=== PATIENT | female | born 1945 | race Caucasian/White ===

== ENCOUNTER → 2019-11-03 10:00 | Outpatient (BNVA) | payer MEDICARE, OTHER, SELFPAY | PROVIDERS: Family Provider Internal Medicine; PCP Internal Medicine; Visit Provider Obstetrics & Gynecology | DX: R32 Unspecified urinary incontinence (principal) | CPT/HCPCS: 80053 ==

== ENCOUNTER 2019-12-25 07:44 | Outpatient (CLI) | payer MEDICARE, OTHER, SELFPAY ==
--- NOTE | 2019-12-25 07:50 | MM_ITS ---
WS: [id number] BILATERAL SCREENING DIGITAL MAMMOGRAM WITH CAD HISTORY: SCREENING COMPARISON: 08/22/2018 and 08/15/2017 Bilateral CC and MLO views submitted. Computer aided detection analyzed. Breast composition: The breasts are heterogeneously dense, which may obscure small masses. No suspici ous masses, microcalcifications or architectural distortion. Several benign appearing calcifications and stable calcifications within each breast. MM/[place] [id number] IMPRESSION: BI-RADS: 2-Benign FOLLOW UP: 1 Year Follow-up
== END 2019-12-25 07:45 | disposition home or self-care (01) ==
LOC: RADSHAW 07:48
PROVIDERS: Family Provider Internal Medicine; PCP Internal Medicine; Visit Provider Internal Medicine
DX: Z12.31 Encounter for screening mammogram for malignant neoplasm of breast (principal)
CPT/HCPCS: 77067

== ENCOUNTER → 2020-03-31 13:49 | Outpatient (BNVA) | payer MEDICARE, OTHER, SELFPAY | PROVIDERS: Family Provider Internal Medicine; PCP Internal Medicine; Visit Provider Obstetrics & Gynecology | DX: N76.3 Subacute and chronic vulvitis (principal); B37.3 Candidiasis of vulva and vagina | CPT/HCPCS: 87210 ==

== ENCOUNTER 2020-10-12 06:58 | Outpatient (CLI) | payer MEDICARE, OTHER, SELFPAY ==
--- NOTE | 2020-10-12 | USCV_ITS ---
Kamilla Katz Age: 75 Gender: F : 1945 Exam Date: 10/12/2020 07:19 Ordering Phys: Judit Stockton MD Technologist: Ruthie Frausto [place] [facility] [place]: CHF BP: 137 / 80 HR: 87 Rhythm: Sinus Technical Quality: Adequate MEASUREMENTS (Male / Female) Normal Values 2D ECHO LV Diastolic Diameter PLAX 3.6 cm 4.2 - 5.9 / 3.9 - 5.3 cm LV Systolic Diameter PLAX 2.9 cm LV Chamber Size 2.9 cm IVS Diastolic Thickness 1.0 cm 0.6 - 1.0 / 0.6 - 0.9 cm IVS Systolic Thickness 1.2 cm LVPW Diastolic Thickness 1.1 cm 0.6 - 1.0 / 0.6 - 0.9 cm LVPW Systolic Thickness 1.2 cm RV Chamber Size 2.2 cm LVOT Diameter 2.0 cm LV Ejection Fraction 2D Teich 42.9 % LV Ejection Fraction MOD 2C 69.5 % LV Ejection Fraction 2C AL 70.0 % LA Diameter 3.2 cm LA Width 2.9 cm LA Height 4.3 cm RA Width 2.0 cm RA Height 3.6 cm Aorta at Sinotubular Diameter 2.7 cm M-MODE LV Diastolic Diameter MM 4.3 cm 4.2 - 5.9 / 3.9 - 5.3 cm LV Systolic Diameter MM 2.7 cm LV Ejection Fraction MM Teich 69.2 % IVS Diastolic Thickness MM 1.3 cm 0.6 - 1.0 / 0.6 - 0.9 cm IVS Systolic Thickness MM 1.7 cm LVPW Diastolic Thickness MM 1.4 cm 0.6 - 1.0 / 0.6 - 0.9 cm LVPW Systolic Thickness MM 1.1 cm Aortic Annulus Diameter 3.0 cm LA Ao Ratio MM 1.0 MV E Point Septal Separation 0.5 cm DOPPLER AV Peak Velocity 126.0 cm/s LVOT Peak Velocity 94.0 cm/s AV Area Cont Eq vti 2.6 cm squared AV Area Cont Eq pk 2.5 cm squared MV Area PHT 12.2 cm squared Mitral E to A Ratio 0.6 MV E' Velocity 40.0 cm/s Mitral E to MV E' Ratio 8.4 Mitral E to LV E' Lateral Ratio 6.1 Mitral E to LV E' Septal Ratio 13.7 TR Peak Velocity 200.4 cm/s TR Peak Gradient 16.1 mmHg TR Mean Velocity 159.1 cm/s TR Mean Gradient 10.6 mmHg TR Velocity Time Integral 55.9 cm TV Peak E Velocity 59.0 cm/s Right Atrial Pressure 3.0 mmHg Pulmonary Artery Systolic Pressu 19.1 mmHg PV Peak Velocity 62.0 cm/s RV Acceleration Time 0.1 s RV Ejection Time 0.3 s RV AcT/ET 0.4 FINDINGS Left Ventricle Normal left ventricular size and systolic function, EF 71 %. No regional wall motion abnormalities. Right Ventricle The right ventricle is normal in size and function. Right Atrium The right atrium is normal in size. Left Atrium The left atrium is normal in size. Mitral Valve No gross abnormalities noted Aortic Valve No gross abnormalities noted . Tricuspid Valve Trace tricuspid valve regurgitation. Pulmonic Valve Pulmonic valve not well visualized. Pericardium Normal pericardium without effusion. Aorta Normal ascending aorta dimension. CONCLUSIONS Normal left ventricular size and systolic function, EF 71 %. No regional wall motion abnormalities. Normal cardiac chamber sizes. Trace tricuspid valve regurgitation. Estimated pulmonary artery peak systolic pressure of 19 mmHg No significant pericardial effusion Dr Henry Orosco MD FAC (Electronically Signed) Final Date: 13 Oct 2020 00:39 S
== END 2020-10-12 06:59 | disposition home or self-care (01) ==
LOC: US 06:58
PROVIDERS: PCP Internal Medicine; Visit Provider Internal Medicine
DX: R60.9 Edema, unspecified (principal); I50.9 Heart failure, unspecified
CPT/HCPCS: 93306

== ENCOUNTER 2021-05-11 07:53 | Outpatient (CLI) | payer MEDICARE, OTHER, SELFPAY ==
--- NOTE | 2021-05-11 07:56 | MM_ITS ---
WS: [id number] BILATERAL DIGITAL SCREENING MAMMOGRAPHY WITH CAD CLINICAL INFORMATION: SCREENING HISTORY: Screening mammogram. No current complaints. COMPARISON: December 25, 2019 TECHNIQUE: Bilateral CC and MLO views. FINDINGS: Scattered fibroglandular densities bilaterally. Stable punctate and lucent centered calcifications. V ascular calcification. No suspicious focal mass, asymmetry, calcifications, or architectural distorti on. No evidence of malignancy. MM/[id number] IMPRESSION: BI-RADS: 2-Benign FOLLOW UP: 1 Year Follow-up Recommend return to annual screening mammography.
== END 2021-05-11 07:54 | disposition home or self-care (01) ==
LOC: RADSHAW 07:55
PROVIDERS: PCP Internal Medicine; Visit Provider Internal Medicine
DX: Z12.31 Encounter for screening mammogram for malignant neoplasm of breast (principal)
CPT/HCPCS: 77067

== ENCOUNTER → 2021-05-13 09:20 | Outpatient (BNVA) | payer MEDICARE, OTHER, SELFPAY | PROVIDERS: PCP Internal Medicine; Visit Provider Obstetrics & Gynecology | DX: N81.10 Cystocele, unspecified (principal); E11.9 Type 2 diabetes mellitus without complications | CPT/HCPCS: 81000; 83036 ==

== ENCOUNTER → 2021-06-24 08:41 | Outpatient (BNVA) | payer MEDICARE, OTHER, SELFPAY | PROVIDERS: PCP Internal Medicine; Visit Provider Obstetrics & Gynecology | DX: Z01.818 Encounter for other preprocedural examination (principal) | CPT/HCPCS: 87635 ==

== ENCOUNTER 2021-06-29 14:15 | Observation (INO) | payer MEDICARE, OTHER, SELFPAY ==
--- NOTE | 2021-06-28 09:45 | ECG_ITS ---
[facility] Test Date: 2021-06-28 Pat Name: Kamilla Katz Department: Room: Gender: Female Shelf Filler: : 1945 Requested By: Tonio Dias Order Number: [id number] Brent MD: Lacey Hensley M.D. Measurements Intervals [place] Rate: 81 P: 50 [place]: 200 QRS: -15 QRSD: 97 T: 19 QT: 403 QTc: 468 Interpretive Statements SINUS RHYTHM POSSIBLE LEFT ATRIAL ENLARGEMENT [-0.1mV P-WAVE IN V1/V2] INFERIOR MYOCARDIAL INFARCTION , OF INDETERMINATE AGE [40+ ms Q WAVE AND/OR ST/T ABNORMALITY IN II/aVF] ANTEROLATERAL MYOCARDIAL INFARCTION , OF INDETERMINATE AGE [40+ ms Q WAVE IN I/aVL/V3-V6] No previous ECG available for comparison Electronically Signed On 06-28-2021 17:12:51 MANAGEMENT ENGINEER by Lacey Hensley M.D. [id number]
[2021-06-28 10:04] VITALS: BMI 25.4
[2021-06-28 11:34] LABS: Basophils # 0.1 10^3/uL (0.0-0.1); Basophils % 0.9 %; Eosinophils # 0.5 10^3/uL (0.0-0.8); Hematocrit 51.1 % (37.0-47.0); Hemoglobin 16.3 g/dL (11.5-15.3); Lymphocytes # 1.5 10^3/uL (0.8-4.8); Lymphocytes % 16.9 %; Mean Corpuscular HGB Conc 31.9 g/dL (30.0-36.0); Mean Corpuscular Hemoglobin 29.9 pg (28.0-34.0); Mean Corpuscular Volume 93.8 fl (81-99); Mean Platelet Volume 11.3 fL (7.4-10.4); Monocytes # 0.5 10^3/uL (0.2-0.9); Monocytes % 5.8 %; Neutrophils # 6.43 10^3/uL (1.8-7.7); Nucleated Red Blood Cells % 0 %; Platelet Count 283 10^3/cmm (130-400); Red Blood Count 5.45 10^6/uL (4.1-5.3); Red Cell Distribution Width 13.3 % (12.1-15.1); White Blood Count 9.1 10^3/uL (4.0-10.0)
[2021-06-28 11:42] LABS: Add Urine Microscopic? YES; Bilirubin Urine Neg (Negative); Blood Urine Neg (Negative); Glucose Urine UA 4+ (Normal); Ketones Urine Negative (Negative); Leukocyte Esterase Urine Trace (Negative); Nitrate Urine Negative (Negative); Protein Urine Neg (Negative); Specific Gravity, Urine 1.015 (1.005-1.030); Urine Appearance Hazy (CLEAR); Urine Color Yellow (Yellow); Urobilinogen Urine Neg (Negative); pH Urine 5 (5-7)
[2021-06-28 11:46] LABS: RBC Urine 0-4 /hpf (0-2)
[2021-06-28 11:48] LABS: Add Urine Culture? Yes; Bacteria Urine TRACE /hpf; WBC Urine >100 /hpf (0-5)
[2021-06-28 12:00] LABS: Alanine Aminotransferase 45 U/L (0-33); Albumin Level 4.9 g/dL (3.5-5.2); Alkaline Phosphatase 78 IU/L (35-105); Anion Gap 23.4 (5-19); Aspartate Amino Transferase 24 U/L (0-32); Blood Urea Nitrogen 19 mg/dL (8-23); Calcium 10.9 mg/dL (8.5-10.5); Carbon Dioxide 24 mmol/L (22-29); Chloride 92 mmol/L (98-107); Globulin 2.6 g/dL (1.3-4.6); Glucose 234 mg/dL (65-115); Osmolality Calculated 292 mOsm/kg (285-295); Potassium 3.4 mmol/L (3.5-5.1); Sodium 136 mmol/L (136-145); Total Bilirubin 0.6 mg/dL (0.15-1.2); Total Protein 7.5 g/dL (6.6-8.7)
--- NOTE | 2021-06-28 12:01 | ANES.PREANE2 ---
Pre-Anesthetic Assessment Height/Weight: Height 1.57 m Weight 63.049 kg Preop Diagnosis: Cystocele stage III Operation Date: 06/29/21 10:00 Proposed Procedures p Anterior Repair [id number]/n81.10(Not Applicable) - Nish Duncan MD s Sling(Not Applicable) - Nish Duncan MD Familial anesthetic complications: None Was Beta Sophy taken within 24 hours: Yes Was Clonidine taken within 24 hours: N/A Social No alcohol and No tobacco Exam alert, oriented x 3, clear to auscultation bilaterally and regular rate & rhythm Airway Submandibular: within normal limits and Other Cervical ROM: Other (Limited) Mallampati: Class III Dentition: chipped History/ROS No significant complaints Pulmonary Chronic Obstructive Pulmonary Disease CV/HEM Coronary Artery Disease, Hypertension and Myocardial Infarction METS > 4 Hx of coronary stenting TTE 09/2020 CONCLUSIONS ?Normal left ventricular size and systolic function, EF 71 %. ?No regional wall motion abnormalities. ?Normal cardiac chamber sizes. ?Trace tricuspid valve regurgitation. ?Estimated pulmonary artery peak systolic pressure of 19 mmHg ?No significant pericardial effusion None reported Hepatic None reported GI None reported Metabolic Diabetes Mellitus [facility] [place]/skel Osteoarthritis/DJD Neuropsych None reported Anesthetic Plan Anesthesia: Anesthesia Evaluation and General Risk of > 500 ml blood loss (7ml/kg in children): No Medications/Allergies Home Medications Medication Instructions Recorded Confirmed Last Taken Type aspirin 325 mg tablet 325 mg PO DAILY 07/22/19 06/28/21 Unknown History lorazepam 0.5 mg tablet 0.5 mg PO DAILY PRN 07/22/19 06/28/21 Unknown History metformin 1,000 mg tablet 1,000 mg PO BID 07/22/19 06/28/21 Unknown History cholecalciferol (vitamin D3) 50 1,000 unit PO DAILY tab 07/24/19 06/28/21 Unknown History mcg (2,000 unit) tablet glimepiride 1 mg tablet 2 mg PO DAILY tab 11/03/19 06/28/21 Unknown History losartan 50 mg tablet 50 mg PO BID tab 01/19/20 06/28/21 Unknown History metoprolol tartrate 25 mg tablet 75 mg PO BID tab 07/21/20 06/28/21 Unknown History liraglutide 0.6 mg/0.1 mL (18 mg/3 1.2 mg SUBCUT DAILY 01/13/21 06/28/21 Unknown History mL) subcutaneous pen injector (Victoza 2-Lorenzo) chlorthalidone 25 mg tablet 25 mg PO DAILY #30 tab 02/04/21 06/28/21 Unknown Rx azelastine 137 mcg (0.1 %) nasal 2 spray INTRANASAL BID #30 ml 03/06/21 06/28/21 Unknown Rx spray aerosol nifedipine 30 mg tablet,extended 30 mg PO DAILY #30 tab 03/07/21 06/28/21 Unknown Rx release atorvastatin 40 mg tablet 40 mg PO DAILY 06/27/21 06/28/21 Unknown History calcium carbonate 600 mg calcium 1,200 mg PO DAILY tab 06/27/21 06/28/21 Unknown History (1,500 mg) tablet (Calcium) empagliflozin 10 mg tablet 10 mg PO DAILY 06/27/21 06/28/21 Unknown History (Jardiance) eye promise PO DAILY 06/27/21 Unknown History omega 1-vrx-wfy-fish oil 1,200 mg cap PO DAILY cap 06/27/21 06/27/21 Unknown History (144 mg-216 mg) capsule (Fish Oil) Allergies Allergy/AdvReac Type Severity Reaction Status Date / Time Penicillins Allergy Unknown Unknown Verified 06/28/21 09:58 [facility] [place] Anesthesia Medical History ASHD (arteriosclerotic heart disease) COPD (chronic obstructive pulmonary disease) Diabetes Dyslipidemia HTN (hypertension) Myocardial infarction Surgical History S/P hysterectomy (~1994) ELSA with bladder tie up . Performed by Dr. Balderrama at [facility] [place]. Unsure if has ovaries S/P PTCA (percutaneous transluminal coronary angioplasty) Status post tubal ligation Family History Unknown Diabetes paternal and maternal in general Stroke aunts Heart disease paternal and maternal in general Hypertension maternal side in general Brother Diabetes Father Diabetes Cancer bone and prostate Son Diabetes Mother Diabetes Heart disease Hypertension Cancer liver Denies family history of CAD (coronary artery disease) Clotting disorder Hyperlipidemia Chronic kidney disease (CKD) Bleeding disorder Thyroid disease Social History Smoking and tobacco status: never smoked Alcohol intake: never Substance/Drug Use: never Household members: spouse Marital status: Data Anesthesia : 06/28/21 10:30 06/28/21 10:30 Short CBC 06/28/21 Range/Units 10:30 WBC 9.1 (4.0-10.0) 10^3/uL Hgb 16.3 H (11.5-15.3) g/dL Hct 51.1 H (37.0-47.0) % MCV 93.8 (81-99) fl Plt Count 283 (130-400) 10^3/cmm Neut % (Auto) 71.0 % Neut # (Auto) 6.43 (1.8-7.7) 10^3/uL Urine 06/28/21 Range/Units 10:40 Urine Color Yellow (Yellow) Urine Appearance Hazy A (CLEAR) Urine pH 5 (5-7) Ur Specific Krypton 1.015 (1.005-1.030) Urine Protein Neg (Negative) Urine Glucose (UA) 4+ H (Normal) Urine Ketones Negative (Negative) Urine Nitrate Negative (Negative) Urine Bilirubin Neg (Negative) Ur Leukocyte Esterase Trace H (Negative) Urine RBC 0-4 H (0-2) /hpf Urine WBC >100 H (0-5) /hpf Cardiac Studies: Echocardiogram Ultrasound 10/12/20
[2021-06-29] VITALS (15 sets, daily range): BP systolic 124–162; BP diastolic 58–85; PULSE 71–120; RESP 10–18; TEMP 36.3–36.9; O2SAT 94–96; BMI 25.4
--- NOTE | 2021-06-29 08:42 | W.PM.OPSUD ---
Surgery/Procedure H&P Update DATE OF PROCEDURE: June 29, 2021 DATE H&P PERFORMED: 06/27/21 H&P UPDATE INFORMATION: I have reviewed H&P completed within last 30 days and No changes to prior documentation PREOP DIAGNOSIS: Cystocele stage III PLANNED PROCEDURE: Operation Date: 06/29/21 10:00 Proposed Procedures p Anterior Repair [id number]/n81.10(Not Applicable) - Nish Duncan MD s Sling(Not Applicable) - Nish Duncan MD
--- NOTE | 2021-06-29 09:00 | P.ANESUD_ITS ---
Pre-Anesthetic Update Pre-Anesthetic Assessment: Date of Surgery/Procedure: 06/29/21 Preop Shelbie gnosis: Cystocele stage III Proposed Procedure: Operation Date: 06/29/21 10:00 Proposed Procedures p Anterior Repair [id number](Not Applicable) - Nish Duncan MD s Sling(Not Applicable) - Nish Duncan MD Any changes to Pre-Anesthetic Assessment?: No Last Intake: Intake Last Liquid Date 06/28/21 Last Liquid Time 18:00 Last Solid Date 06/28/21 Last Solid Time 18:00 Labs Last 48hrs: Short CBC 06/28/21 Range/Units 10:30 WBC 9.1 (4.0-10.0) 10^3/ uL Hgb 16.3 H (11.5-15.3) g/dL Hct 51.1 H (37.0-47.0) % MCV 93.8 (81-99) fl Plt Count 283 (130-400) 10^3/c mm Neut % (Auto) 71.0 % Neut # (Auto) 6.43 (1.8-7.7) 10^3/u L BMP 06/28/21 10:30 Sodium 136 Potassium 3.4 L Chloride 92 L Carbon Dioxide 24 BUN 19 Creatinine 0.5 Glucose 234 H Calcium 10.9 H Liver Function 06/28/21 Range/Units 10:30 Total Bilirubin 0.6 (0.15-1.2) mg/dL AST 24 (0-32) U/L ALT 45 H (0-33) U/L Alkaline Phosphata se 78 (35-105) IU/L Albumin 4.9 (3.5-5.2) g/dL Urine 06/28/21 Range/Units 10:40 Urine Color Yellow (Yellow) Urine Appearance Hazy A (CLEAR) Urine pH 5 (5-7) Ur Specific Gravit y 1.015 (1.005-1.030) Urine Protein Neg (Negative) Urine Glucose (UA) 4+ H (Normal) Urine Ketones Negative (Negative) Urine Nitrate Negative (Negative) Urine Bilirubin Neg (Negative) Ur Leukocyte Elin ase Trace H (Negative) Urine RBC 0-4 H (0-2) /hpf Urine WBC >100 H (0-5) /hpf Blood Bank 06/28/21 10:30 Blood Type B Positive Rho(D) Type Positive Antibody Screen Negative Vitals: Temperature 98.4 F 06/29/21 08:30 Temperature Source Temporal Artery S can 06/29/21 08:30 Pulse Rate 71 06/29/21 08:30 Respiratory Rate 18 06/29/21 08:30 Blood Pressure 141/84 06/29/21 08:30 Blood Pressure Lisa n 103 06/29/21 08:30 Pulse Oximetry 96 06/29/21 08:30 Oxygen Delivery Me thod 06/29/21 08:43 Exam: Pre-Anes Outpt Exam: alert, oriented x 3, clear to auscultation bilaterally and regular rate & rhythm Cardiac Studies: Echocardiogram Ultrasound 10/12/20
[2021-06-29 09:05] LABS: Glucose Point of Care 235 mg/dL (70-110)
[2021-06-29] MEDS: sodium chloride 0.9% 500 ML IV (09:11)
[2021-06-29] MEDS: vancomycin 1,000 MG in sodium chloride 0.9% 250 ML 250 MG IV (09:11)
[2021-06-29] MEDS: scopolamine 1.5 Patch 1 PATCH TRANSDERMA (09:12)
[2021-06-29] MEDS: insulin regular-human 100 units/1 mL 10 UNIT IVP (09:24)
[2021-06-29] MEDS: sodium chloride 0.9% 1,000 ML 30 ML (09:45)
[2021-06-29] MEDS: levofloxacin-dextrose 5 % 500 MG/100 ML PREMIX 100 MG IV (11:07)
[2021-06-29] MEDS: estrogens Conjugated Cream 30 gm 1 APPLIC VAGINAL (12:15)
--- NOTE | 2021-06-29 12:34 | P.OP_ITS ---
Operative Report Date of procedure: June 29, 2021 Pre-op diagnosis: Cystocele stage III Post-op diagnosis: same Procedure done: Anterior colporrhaphy augmented with allograft. Single incision sling. Cystoscopy Implants: Coloplast allograft. Coloplast Altis single incision sling. Surgeon: Nish Duncan MD Estimated blood loss: 10 Urine output: 300 Procedure: After obtaining informed consent, the patient was taken to the operating room and placed in the supine position, given general anesthesia, and prepped and draped in sterile fashion. The abdomen, vulva and vagina were prepped and draped in a sterile manner. A time out procedure was performed. The anterior vaginal mucosa beneath the midurethra was infiltrated with 0.5% Marcaine with epinephrine. A vertical midline incision was made beneath the midurethra, nearly 1.5 cm length. Careful submucosal dissection was performed bilaterally up to the interior portion of the inferior pubic ramus. The insertion of adductor longus tendon on the patient?s pubic ramus was identified as reference land liz. Palpated the notch along the internal edge of ischiopubic ramus where the adductor longus tendon and the inferior pubic ramus meet. The Altis single incision sling (SIS) was selected. Then the needle of the SIS inserted aiming at the location of this notch. One of the integrated self- fixating tips place onto the needle by sliding it over the end of the needle. The needle/sling assembly was inserted toward the location of identified re ference notch making sure that the flat of the handle is perpendicular to the desired path. The needle was tracked along the posterior surface of the ischiopubic ramus until the midline liz on the mesh is approximately at the midline position under the urethra. The needle was removed and the same was repeated on the contralateral side until the appropriate sling tension under the urethra was achieved ensuring that the mesh lays flat. The needle was removed and vaginal incision was closed in a running interlocking fashion with 2-0 Vicryl. The vaginal mucosa was then injected in the midline with normal saline. The vaginal mucosa was scored in the midline with the Bovie approximately 1 cm medial to the urethral meatus to 1 cm distal to the vaginal cuff. This vaginal mucosa was then undermined and then incised in the midline with the Metzenbaum scissors. The lateral aspects of the vaginal mucosa were then grasped with the Allis clamps and the vaginal mucosa was then dissected off the underlying fascia with the Metzenbaum scissors. Again, there was noted to be quite a bit of oozing at the incision, which was controlled with cautery. After adequate dissection was performed, bilaterally. The Coloplast allograft was modified at time of application to fit spacea, 3 x 3 cm piece . The allograft was placed in front of cystocele and was suture is placed at distal end of graft and placed towards vaginal cuff. Final suture is placed on proximal portion of the graft to complete the placement overlying the bladder. Then Interrupted vertical mattress sutures of 0 Vicryl were used to elevate the cystocele superiorly. The excessive vaginal mucosa was then trimmed with the Metzenbaum scissors and the vaginal mucosa was then reapproximated in the running interlocking fashion with 2-0 Vi cryl. Then the Arce catheter was removed and cystoscope was inserted. The bladder was filled with sterile water. Complete evaluation of the bladder mucosa was performed noting no lacerations, dimpling, tears, bleeding of the mucosa or muscular layers. Both ureteral orifices were identified. Prompt excretion of urine from both ureteral orifices was noted. Cystoscope was withdrawn. The Arce catheter was replaced. Excellent hemostasis was obtained. A vaginal pack is placed overnight as postoperative support for the vaginal tissues after graft placement and closure of vaginal incisions. Sponge, lap, needle, and instrument counts were correct times three. The patient was taken to the recovery room, awake and in stable condition.
--- NOTE | 2021-06-29 13:02 | ANE.PACU2 ---
Inpatient post-anesthesia follow up: Airway intact: Yes Vital signs: Temperature 97.7 F Pulse Rate 84 Respiratory Rate 17 Blood Pressure 153/65 Pulse Oximetry 95 Oxygen Delivery Me thod Room Air Oxygen Flow Rate Fraction of Inspir ed Oxygen Hydration adequate: Yes Nausea and vomiting: No Pain level: 1 Mental status: Baseline
[2021-06-29] MEDS: losartan 50 mg Tablet PO (18:03)
[2021-06-29] MEDS: docusate sodium 100 mg Capsule PO (18:03)
[2021-06-29] MEDS: metformin 500 mg Tablet 1000 MG PO (18:04)
[2021-06-29] MEDS: metoprolol tartrate 25 mg Tablet 75 MG PO (18:05)
[2021-06-29] MEDS: ibuprofen 800 mg tablet PO (22:29)
[2021-06-29] MEDS: LORazepam 0.5 mg Tablet PO (22:29)
[2021-06-30 04:17] VITALS: BP 146/69; PULSE 81; RESP 15; TEMP 36.6; O2SAT 95
[2021-06-30 05:49] LABS: Hematocrit 40.3 % (37.0-47.0); Hemoglobin 13.1 g/dL (11.5-15.3); Mean Corpuscular HGB Conc 32.5 g/dL (30.0-36.0); Mean Corpuscular Hemoglobin 30.2 pg (28.0-34.0); Mean Corpuscular Volume 92.9 fl (81-99); Mean Platelet Volume 10.9 fL (7.4-10.4); Platelet Count 218 10^3/cmm (130-400); Red Blood Count 4.34 10^6/uL (4.1-5.3); Red Cell Distribution Width 13.1 % (12.1-15.1); White Blood Count 8.8 10^3/uL (4.0-10.0)
[2021-06-30] MEDS: metformin 500 mg Tablet 1000 MG PO (10:07)
[2021-06-30] MEDS: docusate sodium 100 mg Capsule PO (10:07)
[2021-06-30] MEDS: aspirin 325 mg Tablet PO (10:08)
[2021-06-30] MEDS: atorvastatin 40 mg Tablet PO (10:08)
[2021-06-30] MEDS: NIFEdipine ER (24 hr) 30 mg Tablet PO (10:08)
[2021-06-30] MEDS: metoprolol tartrate 25 mg Tablet 75 MG PO (10:08)
[2021-06-30 10:09] VITALS: BP 139/64
[2021-06-30] MEDS: losartan 50 mg Tablet PO (10:09)
[2021-06-30] MEDS: chlorthalidone 25 mg Tablet PO (10:09)
[2021-06-30] MEDS: glimepiride 2 mg Tablet PO (10:09)
[2021-06-30] MEDS: cholecalciferol (vitamin D3) 1,000 unit Tablet 1000 UNIT PO (10:09)
--- NOTE | 2021-06-30 11:24 | PM.OBGYDC ---
Discharge Providers LICENSED LOAN OFFICER Date of Admission: 06/29/21 14:15 Date of Discharge: 06/30/21 Attending Provider at Admission: Nish Duncan MD Attending Provider at Discharge: Nish Duncan MD Primary Care Provider: Judit Stockton MD Reason for Visit Reason for Visit: stage 3 cystocele Hospital Course Hospital Course Mrs. Granados 75-year-old female with a history of cystocele stage III. Admitted for planned anterior colporrhaphy augmented with allograft and single incision mid urethral sling. The procedures were performed without complication. She is afebrile and hemodynamically stable. Postop PVR within normal limits. Tolerating diet well. Ambulating without difficulty. Physical Exam Narrative: EXAM NARRATIVE: GA: Alert and oriented ?3. HEENT: WNL. Heart: Regular rate and rhythm. Lungs: Clear to auscultation bilaterally. Abdomen: Bowel sounds present, nontender. ELEVATOR OPERATOR: Spotting bleeding. Extremities: No edema, no cyanosis, no calves pain. Urinary Catheter Management: Arce: Cath Placed During This Visit: yes Urinary Catheter Date of Insertion: 06/29/21 Urinary Catheter Time of Insertion: 10:59 History History History 3 Term 1 Miscarriages/Ectopic 2 0 Living Children 1 Discharge Data Studies Completed and Pending Pending at discharge Category Date Time Status ES surgery / GI images Routine Exams 06/29/21 11:49 Taken Laboratory Results WBC 8.8 10^3/uL (4.0-10.0) 06/30/21 05:30 RBC 4.34 10^6/uL (4.1-5.3) 06/30/21 05:30 Hgb 13.1 g/dL (11.5-15.3) 06/30/21 05:30 Hct 40.3 % (37.0-47.0) 06/30/21 05:30 MCV 92.9 fl (81-99) 06/30/21 05:30 MCH 30.2 pg (28.0-34.0) 06/30/21 05:30 MCHC 32.5 g/dL (30.0-36.0) 06/30/21 05:30 RDW 13.1 % (12.1-15.1) 06/30/21 05:30 Plt Count 218 10^3/cmm (130-400) 06/30/21 05:30 MPV 10.9 fL (7.4-10.4) H 06/30/21 05:30 Neut % (Auto) 71.0 % 06/28/21 10:30 Lymph % (Auto) 16.9 % 06/28/21 10:30 [place] % (Auto) 5.8 % 06/28/21 10:30 Eos % (Auto) 5.0 % 06/28/21 10:30 Baso % (Auto) 0.9 % 06/28/21 10:30 Neut # (Auto) 6.43 10^3/uL (1.8-7.7) 06/28/21 10:30 Lymph # (Auto) 1.5 10^3/uL (0.8-4.8) 06/28/21 10:30 [place] # (Auto) 0.5 10^3/uL (0.2-0.9) 06/28/21 10:30 Eos # (Auto) 0.5 10^3/uL (0.0-0.8) 06/28/21 10:30 Baso # (Auto) 0.1 10^3/uL (0.0-0.1) 06/28/21 10:30 Nucleated RBC % (auto) 0 % 06/28/21 10:30 Nucleated RBCs # 0.0 /100WBC 06/28/21 10:30 Sodium 136 mmol/L (136-145) 06/28/21 10:30 Potassium 3.4 mmol/L (3.5-5.1) L 06/28/21 10:30 Chloride 92 mmol/L (98-107) L 06/28/21 10:30 Carbon Dioxide 24 mmol/L (22-29) 06/28/21 10:30 Anion Gap 23.4 (5-19) H 06/28/21 10:30 BUN 19 mg/dL (8-23) 06/28/21 10:30 Creatinine 0.5 mg/dL (0.5-0.9) 06/28/21 10:30 GFR Calculation Not Reportable 06/28/21 10:30 Glucose 234 mg/dL (65-115) H 06/28/21 10:30 POC Glucose 235 mg/dL (70-110) H 06/29/21 08:55 Calculated Osmolality 292 mOsm/kg (285-295) 06/28/21 10:30 Calcium 10.9 mg/dL (8.5-10.5) H 06/28/21 10:30 Total Bilirubin 0.6 mg/dL (0.15-1.2) 06/28/21 10:30 AST 24 U/L (0-32) 06/28/21 10:30 ALT 45 U/L (0-33) H 06/28/21 10:30 Alkaline Phosphatase 78 IU/L (35-105) 06/28/21 10:30 Total Protein 7.5 g/dL (6.6-8.7) 06/28/21 10:30 Albumin 4.9 g/dL (3.5-5.2) 06/28/21 10:30 Globulin 2.6 g/dL (1.3-4.6) 06/28/21 10:30 Urine Color Yellow (Yellow) 06/28/21 10:40 Urine Appearance Hazy (CLEAR) A 06/28/21 10:40 Urine pH 5 (5-7) 06/28/21 10:40 Ur Specific [place] 1.015 (1.005-1.030) 06/28/21 10:40 Urine Protein Neg (Negative) 06/28/21 10:40 Urine Glucose (UA) 4+ (Normal) H 06/28/21 10:40 Urine Ketones Negative (Negative) 06/28/21 10:40 Urine Blood Neg (Negative) 06/28/21 10:40 Urine Nitrate Negative (Negative) 06/28/21 10:40 Urine Bilirubin Neg (Negative) 06/28/21 10:40 Urine Urobilinogen Neg mg/dL (Negative) 06/28/21 10:40 Ur Leukocyte Esterase Trace (Negative) H 06/28/21 10:40 Urine RBC 0-4 /hpf (0-2) H 06/28/21 10:40 Urine WBC >100 /hpf (0-5) H 06/28/21 10:40 Ur Squamous Epith Cells 5-10 /hpf (0-5) H 06/28/21 10:40 Amorphous Sediment Not Reportable 06/28/21 10:40 Urine Bacteria Trace /hpf (NONE) 06/28/21 10:40 Urine Yeast Trace /hpf 06/28/21 10:40 Blood Type B Positive 06/28/21 10:30 Rho(D) Type Positive 06/28/21 10:30 Antibody Screen Negative 06/28/21 10:30 Vitals Last Vital Signs Temp 97.8 F 06/30/21 04:17 Pulse 81 06/30/21 04:17 Resp 15 06/30/21 04:17 BP 139/64 06/30/21 10:09 Pulse Ox 95 06/30/21 04:17 Discharge Plan Discharge Patient Disposition: Home Condition: Stable Prescriptions: New hydrocodone-acetaminophen 5-325 mg tablet 1 tab PO Q4H PRN (Reason: pain) Qty: 10 0RF acetaminophen 325 mg capsule 325 mg PO Q4H PRN (Reason: fever or pain) Qty: 60 0RF Continued Victoza 2-Olrenzo 0.6 mg/0.1 mL (18 mg/3 mL) pen injector 1.2 mg SUBCUT DAILY 0RF azelastine 137 mcg (0.1 %) aerosol,spray 2 spray intranasal BID Qty: 30 0RF Rx Instructions: administer into each nostril cholecalciferol (vitamin D3) 2,000 unit tablet 1,000 unit PO DAILY 0RF lorazepam 0.5 mg tablet 0.5 mg PO DAILY PRN (Reason: Anxiety) 0RF metformin 1,000 mg tablet 1,000 mg PO BID 0RF aspirin 325 mg tablet 325 mg PO DAILY 0RF glimepiride 1 mg tablet 2 mg PO DAILY 0RF losartan 50 mg tablet 50 mg PO BID 0RF metoprolol tartrate 25 mg tablet 75 mg PO BID 0RF atorvastatin 40 mg tablet 40 mg PO DAILY 0RF Jardiance 10 mg tablet 10 mg PO DAILY 0RF omega 1-grv-mlc-fish oil [Fish Oil] 1,200 (144-216) mg capsule PO DAILY 0RF Label Comments: 2400 mg calcium carbonate [Calcium 600] 600 mg calcium (1,500 mg) tablet 1,200 mg PO DAILY 0RF eye promise 1 tab PO DAILY 0RF chlorthalidone 25 mg tablet 25 mg PO DAILY Qty: 30 5RF nifedipine 30 mg tablet extended release 30 mg PO DAILY Qty: 30 5RF Discharge Orders: Discharge Order (Routine); Ordered 06/30/21 Ordered By: Nish Duncan Referrals: Nish Duncan MD [Physician] - 07/12/21 7:45 am (Your 2 week post-op appointment is scheduled for 07/12/21 @7:45. Your 6 week post-op appointment is scheduled for 08/12/21 @8:45. ) Discharge Diet: Usual diet Discharge Activity: Limit activity as instructed Patient Instructions: Cystocele (DC), Anterior Vaginal Repair (DC), OB Discharge Report, OB Food/Drug Interaction Guide, Opioid Safety, Bladder Sling (GEN) Activity Restrictions/Additional Instructions: 1. Please call [facility] on next working day to make your post-operative appointment in 2 weeks. 2. Please stay home until you come back to the clinic on first post-operative check up. 3. Please follow instructions on your medications CAREFULLY. 4. If you have abdominal incision, do not cover it unless dressing is necessary because of drainage. OK to shower, but avoid bath. Leave steri-strips until they fall off. If they are still on one week after surgery, you may remove them. 5. If you had vaginal surgery or vaginal repair, Dr. Duncan may instruct you to take SITZ bath. 6. Yellow, blood tinged odorous vaginal discharge is usually normal after hysterectomy or vaginal surgeries. 7. No sexual intercourse, tampons, or douches until you are completely released from the post-operative care. 8. Avoid constipation by eating right and maybe using some Metamucil or Milk of Magnesia. 9. All prescription refills are given during the working hours. Please do no wait till it runs out. Call the clinic at [phone] before your medication runs out. The clinic will get in touch with your doctor to prescribe medications if necessary. 10. Please remain within 40 mile radius from our hospital because emergencies do happen now and then during the post-operative period. 11. If you have stairs at home, take one step at a time slowly and minimize the number of trips. It helps to stay in one floor for the next few days. No lifting except what you can lift by one hand until you are released from the post-operative care. 12. Driving is discouraged until you are well healed. It may be 3-4 weeks before you feel strong enough to drive. You should be able to turn and look through the rear window without pain and you should be able to push the brake pedal very hard without pain before you drive. No fast rules, but SAFETY should be your primary concern. DO NOT drive if you are on sedating medications such as narcotics. 13. Call the clinic (during working hours) to make urgent appointment or go to the Emergency room, if any of the following occurs: i. Vaginal bleeding becomes heavy, more than a period. ii. Incision becomes red and sore, or drains pus. iii. Your temperature is over 100.4 or you have chill. iv. IV site becomes red and swollen (a little ``knot?? is usually OK) v. Persistent nausea and vomiting vi. Persistent constipation or diarrhea vii. Rash or allergic reaction to medications. Discharge Attestations LICENSED LOAN OFFICER Time Spent in Discharge Care*: greater than 30 min Coding Level of Care Code Acute Household Coordinator for Abel Brown
[2021-06-30 12:00] VITALS: BP 139/64; PULSE 104; RESP 16; TEMP 36.8; O2SAT 94
== END 2021-06-30 11:40 | disposition home or self-care (01) ==
LOC: OBGYN 14:16
PROVIDERS: Admitting Provider Obstetrics & Gynecology; PCP Internal Medicine; Visit Provider Obstetrics & Gynecology
PROC: 0JQC0ZZ Repair Pelvic Region Subcutaneous Tissue and Fascia, Open Approach (ICD-10-PCS; CPT 57240; principal; 2021-06-29 09:50)
PROC: (CPT 57288; 2021-06-29 09:50)
DX: N81.10 Cystocele, unspecified (principal); J44.9 Chronic obstructive pulmonary disease, unspecified; I25.10 Atherosclerotic heart disease of native coronary artery without angina pectoris; I10 Essential (primary) hypertension; I25.2 Old myocardial infarction; Z95.5 Presence of coronary angioplasty implant and graft; Z79.82 Long term (current) use of aspirin; E11.9 Type 2 diabetes mellitus without complications; Z79.84 Long term (current) use of oral hypoglycemic drugs; Z82.49 Family history of ischemic heart disease and other diseases of the circulatory system; Z83.3 Family history of diabetes mellitus; Z82.3 Family history of stroke
CPT/HCPCS: 57240; 57267; 57288; 36415; 36416; 51798; 80053; 81001; 82962; 85025; 85027; 86850; 86900; 87086; 93005; 96365; 96372; C1713; C1762; G0378; J1100; J1200; J1815; J1956; J2405; J2704; J3010; J3370; J7030; J7040; J7050

== ENCOUNTER 2021-12-21 07:25 | Outpatient (CLI) | payer MEDICARE, OTHER, SELFPAY ==
--- NOTE | 2021-12-21 07:41 | MR_ITS ---
WS: [id number] MRI HEAD WITHOUT CONTRAST TECHNIQUE: Sagittal T1, T2 axial, T2 axial FLAIR, axial and coronal T1 images, axial susceptibility w eighted imaging, axial diffusion weighted images, and coronal T2 images were obtained. CLINICAL INFORMATION: MEMORY LOSS COMPARISON: MRI and MRI 2013 FINDINGS: No evidence of restricted diffusion to suggest acute ischemia. Ventricles system and basal cisterns a re patent. Moderate small vessel changes with moderate parenchymal volume loss. Chronic infarcts with gliosis encephalomalacia RIGHT frontal and parietal lobes, RIGHT inferior frontal lobe, and RIGHT oc cipital lobe. Additional chronic infarct RIGHT anterior temporal lobe. These are unchanged from previ ous. Normal vascular flow voids at the skull base. No extra axial fluid collections. No evidence of m ass or mass effect. Retention cyst or polyp RIGHT maxillary sinus measuring 2.7 x 2.1 CM. Normal vascular flow voids at the skull base. No hemosiderin on susceptibly weighted images. Normal optic chiasm and pituitary infu ndibulum. Normal cavernous sinuses and Meckel's cave. Mild symmetric atrophy temporal lobes and hippo campal formations. Small anterior inferior interhemispheric falx meningioma measuring 9 x 4 mm is unc hanged. MR/MR head wo con* [id number] IMPRESSION: 1. No evidence of restricted diffusion to suggest acute ischemia. 2. Stable 9 x 4 mm anterior inferior interhemispheric falx meningioma 3. Moderate small vessel changes with moderate parenchymal volume loss. Parenc hymal volume loss is slightly progressed compared to 2015. 4. 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 5. No hemosiderin on susceptibly weighted images. 6. Mild symmetric atrophy of the temporal lobes and hippocampal formations. 7. Retention cyst or polyp RIGHT maxillary sinus measuring 2.5 x 2.1 CM. 8. Otherwise no remarkable changes since 2015
== END 2021-12-21 07:26 | disposition home or self-care (01) ==
LOC: RAD 07:26
PROVIDERS: PCP Internal Medicine; Visit Provider Internal Medicine
DX: R41.3 Other amnesia (principal); D32.0 Benign neoplasm of cerebral meninges; G31.9 Degenerative disease of nervous system, unspecified
CPT/HCPCS: 70551

== ENCOUNTER 2022-06-05 07:36 | Outpatient (CLI) | payer MEDICARE, OTHER, SELFPAY ==
--- NOTE | 2022-06-05 07:46 | MM_ITS ---
WS: [id number] BILATERAL 3D TOMOSYNTHESIS DIGITAL SCREENING MAMMOGRAPHY WITH CAD CLINICAL INFORMATION: SCREENING HISTORY: Screening mammogram. No current complaints. COMPARISON: May 11, 2021 TECHNIQUE: Bilateral CC and MLO views. FINDINGS: The breasts are composed of heterogeneous fibroglandular density tissue, which can limit the detectio n of small underlying mass lesions. No suspicious mass, asymmetry, calcifications, or architectural d istortion. No evidence of malignancy. Punctate and secretory calcifications. Vascular calcification. MM/[place] [id number] IMPRESSION: BI-RADS: 2-Benign FOLLOW UP: 1 Year Follow-up Recommend return to annual screening mammography.
== END 2022-06-05 07:37 | disposition home or self-care (01) ==
LOC: RAD 07:40
PROVIDERS: PCP Internal Medicine; Visit Provider Internal Medicine
DX: Z12.31 Encounter for screening mammogram for malignant neoplasm of breast (principal)
CPT/HCPCS: 77063; 77067

== ENCOUNTER 2022-08-22 09:25 | Outpatient (CLI) | payer MEDICARE, OTHER, SELFPAY ==
--- NOTE | 2022-08-22 09:37 | XR_ITS ---
WS: [id number] Exam: XR chest 2V* [id number] Date/Time of Exam: 08/22/2022 9:39 AM Reason For Exam: BACTERIAL PNEUMONIA Comparison 09/11/2015. The lungs are clear and fully inflated. Eventration of the right diaphragm. Normal cardiomediastinal silhouette. Old fracture deformities of the left rib cage, left scapula and visualized proximal left humerus. Advanced degenerative changes in both shoulders. Signs of T11 kyphoplasty. XR/XR chest 2V* [id number] IMPRESSION: 1. No acute cardiopulmonary finding.
--- NOTE | 2022-08-22 14:00 | XR_ITS ---
WS: [id number] DEXA (DUAL ENERGY X-RAY ABSORPTIOMETRY) Bone mineral density was performed using a Cliptone machine. HISTORY: Z13.820 - Encounter for screening for osteoporosis COMPARISON: None available. Lumbar spine BMD (L1-L4): 1.141 g/cm2 T score: -0.3 Z score: 1.2 Total hip BMD: Left: 0.881 g/cm2. T score: -1.0 Z score: 0.7 Right: 0.858 g/cm2. T score: -1.2 Z score: 0.5 10 year probability of a major osteoporotic fracture is 12.8%. XR/XR DEXA axial skeleton* [id number] IMPRESSION: OSTEOPENIA based upon the WHO classification for females.
== END 2022-08-22 09:26 | disposition home or self-care (01) ==
LOC: RAD 09:30
PROVIDERS: PCP Internal Medicine; Visit Provider Obstetrics & Gynecology
DX: Z13.820 Encounter for screening for osteoporosis (principal); J15.9 Unspecified bacterial pneumonia; M85.80 Other specified disorders of bone density and structure, unspecified site
CPT/HCPCS: 71046; 77080

== ENCOUNTER → 2022-09-13 11:29 | Outpatient (BNVA) | payer MEDICARE, OTHER, SELFPAY | PROVIDERS: PCP Internal Medicine; Visit Provider Internal Medicine Cardiovascular Disease | DX: I25.10 Atherosclerotic heart disease of native coronary artery without angina pectoris (principal); J44.9 Chronic obstructive pulmonary disease, unspecified; I10 Essential (primary) hypertension; R06.00 Dyspnea, unspecified; E78.5 Hyperlipidemia, unspecified; E11.9 Type 2 diabetes mellitus without complications; Z98.61 Coronary angioplasty status; Z79.82 Long term (current) use of aspirin; Z79.84 Long term (current) use of oral hypoglycemic drugs | CPT/HCPCS: 99213 ==

== ENCOUNTER 2022-11-14 09:40 | Outpatient (CLI) | payer MEDICARE, OTHER, SELFPAY ==
--- NOTE | 2022-11-14 09:46 | USCV_ITS ---
Kamilla Katz Age: 77 Gender: F : 1945 Exam Date: 11/14/2022 09:58 Ordering Phys: Giovanny Patino NP Technologist: Iglesia Abraham Exam Location: [facility] [place] Indication: dyspnea on exertion BP: 150 / 78 HR: 86 Rhythm: Sinus Technical Quality: Adequate MEASUREMENTS (Male / Female) Normal Values 2D ECHO LVOT Diameter 2.0 cm LV Ejection Fraction MOD 2C 70.1 % LV Ejection Fraction 2C AL 71.0 % LA Diameter 3.6 cm LA Width 3.1 cm LA Height 4.4 cm RA Width 3.1 cm RA Height 3.6 cm Aorta at Sinotubular Diameter 1.8 cm M-MODE Aortic Annulus Diameter 2.7 cm LA Ao Ratio MM 1.2 MV E Point Septal Separation 0.5 cm DOPPLER AV Peak Velocity 157.0 cm/s LVOT Peak Velocity 132.0 cm/s AV Area Cont Eq vti 2.6 cm squared AV Area Cont Eq pk 2.7 cm squared MV Peak Velocity 126.0 cm/s MV Area PHT 6.5 cm squared Mitral E to A Ratio 0.6 MV E' Velocity 32.0 cm/s Mitral E to MV E' Ratio 6.0 Mitral E to LV E' Lateral Ratio 5.2 Mitral E to LV E' Septal Ratio 7.1 TR Peak Velocity 225.9 cm/s TR Peak Gradient 20.4 mmHg TR Mean Velocity 171.3 cm/s TR Mean Gradient 13.0 mmHg TR Velocity Time Integral 52.8 cm Right Atrial Pressure 8.0 mmHg Pulmonary Artery Systolic Pressu 28.4 mmHg PV Peak Velocity 106.0 cm/s RV Acceleration Time 0.1 s RV Ejection Time 0.3 s RV AcT/ET 0.2 FINDINGS Left Ventricle Normal left ventricular size. LV systolic function is normal with EF of 60 to 65%. No regional wall motion abnormalities are seen. Grade 1 diastolic dysfunction Right Ventricle The right ventricle is normal in size and function. Right Atrium The right atrium is normal in size. Left Atrium The left atrium is normal in size. Mitral Valve Structurally normal mitral valve. Mild mitral regurgitation Aortic Valve Structurally normal aortic valve. No significant stenosis or regurgitation. Tricuspid Valve Trace tricuspid regurgitation. Insufficient TR jet to calculate RVSP Pulmonic Valve Not well-visualized. Mild pulmonic regurgitation. Pericardium Normal pericardium without effusion. Aorta Normal ascending aorta dimension. IVC The inferior vena cava appears normal. CONCLUSIONS LV systolic function is normal with EF of 60 to 65% Grade 1 diastolic dysfunction. Mild mitral regurgitation. Trace tricuspid regurgitation Mild pulmonic regurgitation Compared to prior echocardiogram from 2019, no significant changes are seen. Musa George MD (Electronically Signed) Final Date: 18 November 2022 16:02 S
== END 2022-11-14 09:41 | disposition home or self-care (01) ==
PROVIDERS: PCP Internal Medicine; Visit Provider Nurse Practitioner Family
DX: I08.1 Rheumatic disorders of both mitral and tricuspid valves (principal); R06.09 Other forms of dyspnea; R60.0 Localized edema
CPT/HCPCS: 93306

== ENCOUNTER → 2023-01-08 08:11 | Outpatient (BNVA) | payer MEDICARE, OTHER, SELFPAY | PROVIDERS: PCP Internal Medicine; Visit Provider Podiatrist Foot & Ankle Surgery | DX: B35.1 Tinea unguium (principal); E11.9 Type 2 diabetes mellitus without complications; R60.9 Edema, unspecified; Z79.84 Long term (current) use of oral hypoglycemic drugs | CPT/HCPCS: 99204 ==

== ENCOUNTER → 2023-01-30 15:54 | Outpatient (BNVA) | payer MEDICARE, OTHER, SELFPAY | PROVIDERS: PCP Internal Medicine; Visit Provider Dermatology | DX: L57.0 Actinic keratosis (principal); D22.39 Melanocytic nevi of other parts of face; D23.61 Other benign neoplasm of skin of right upper limb, including shoulder | CPT/HCPCS: 17000; 99213 ==

== ENCOUNTER → 2023-03-06 11:28 | Outpatient (BNVA) | payer MEDICARE, OTHER, SELFPAY | PROVIDERS: PCP Internal Medicine; Visit Provider Internal Medicine Cardiovascular Disease | DX: I25.10 Atherosclerotic heart disease of native coronary artery without angina pectoris (principal); E78.5 Hyperlipidemia, unspecified; I10 Essential (primary) hypertension; E11.9 Type 2 diabetes mellitus without complications; Z79.84 Long term (current) use of oral hypoglycemic drugs; Z98.61 Coronary angioplasty status; J44.9 Chronic obstructive pulmonary disease, unspecified | CPT/HCPCS: 99213 ==

== ENCOUNTER 2023-07-27 08:58 | Outpatient (CLI) | payer MEDICARE, OTHER, SELFPAY ==
--- NOTE | 2023-07-27 09:06 | MM_ITS ---
WS: [id number] VIEWS: MLO and CC views both breasts. 3D digital tomosynthesis is also included in this exam. Comparison made with prior exam of 05/01/2006, 11/20/2008, 01/14/2010, 01/16/2011, 06/04/2012, 06/12/2013, , 06/22/2015, 08/11/2016, 08/15/2017, 08/22/2018, 12/25/2019, 05/11/2021, 06/05/2022.. Findings: There was no sign of mass, architectural distortion or suspicious calcification in either breast. The breasts are heterogeneously dense which may obscure small masses Impression: MM/[place] [id number] BI-RADS: 2-Benign finding. FOLLOW-UP: 1 Year Follow-up This mammogram was also analyzed by the Computer Aided Detection System R2 Imag e Enterprise Systems Architect.
== END 2023-07-27 08:59 | disposition home or self-care (01) ==
LOC: RAD 08:58
PROVIDERS: PCP Internal Medicine; Visit Provider Internal Medicine
DX: Z12.31 Encounter for screening mammogram for malignant neoplasm of breast (principal)
CPT/HCPCS: 77063; 77067

== ENCOUNTER → 2023-08-06 15:20 | Outpatient (BNVA) | payer MEDICARE, OTHER, SELFPAY | PROVIDERS: PCP Internal Medicine; Visit Provider Nurse Practitioner Family | DX: L82.1 Other seborrheic keratosis (principal); L57.8 Other skin changes due to chronic exposure to nonionizing radiation; L81.4 Other melanin hyperpigmentation; D22.5 Melanocytic nevi of trunk | CPT/HCPCS: 99213 ==

== ENCOUNTER 2023-08-14 07:37 | Outpatient (CLI) | payer MEDICARE, OTHER, SELFPAY | END 2023-08-14 07:38 | disposition home or self-care (01) | PROVIDERS: PCP Internal Medicine; Visit Provider Internal Medicine | DX: R06.02 Shortness of breath (principal) | CPT/HCPCS: 94010 ==

== ENCOUNTER → 2023-09-18 13:37 | Outpatient (BNVA) | payer MEDICARE, OTHER, SELFPAY | PROVIDERS: PCP Internal Medicine; Visit Provider Internal Medicine Cardiovascular Disease | DX: E78.5 Hyperlipidemia, unspecified (principal); I10 Essential (primary) hypertension; I25.10 Atherosclerotic heart disease of native coronary artery without angina pectoris; Z98.61 Coronary angioplasty status; E11.9 Type 2 diabetes mellitus without complications; Z79.84 Long term (current) use of oral hypoglycemic drugs | CPT/HCPCS: 99213 ==

== ENCOUNTER → 2024-01-14 08:34 | Outpatient (BNVA) | payer MEDICARE, OTHER, SELFPAY | PROVIDERS: PCP Internal Medicine; Visit Provider Podiatrist Foot & Ankle Surgery | DX: B35.1 Tinea unguium (principal); R60.9 Edema, unspecified; E11.69 Type 2 diabetes mellitus with other specified complication; Z79.84 Long term (current) use of oral hypoglycemic drugs | CPT/HCPCS: 99213 ==

== ENCOUNTER → 2024-01-31 09:07 | Outpatient (BNVA) | payer MEDICARE, OTHER, SELFPAY | PROVIDERS: PCP Internal Medicine; Visit Provider Nurse Practitioner Family | DX: L57.0 Actinic keratosis (principal); L82.0 Inflamed seborrheic keratosis; D69.2 Other nonthrombocytopenic purpura; D22.39 Melanocytic nevi of other parts of face; D23.61 Other benign neoplasm of skin of right upper limb, including shoulder | CPT/HCPCS: 17000; 17110; 99213 ==

== ENCOUNTER → 2024-03-18 10:08 | Outpatient (BNVA) | payer MEDICARE, OTHER, SELFPAY | PROVIDERS: PCP Internal Medicine; Visit Provider Nurse Practitioner Family | DX: I11.0 Hypertensive heart disease with heart failure (principal); I50.9 Heart failure, unspecified; I25.10 Atherosclerotic heart disease of native coronary artery without angina pectoris; I25.2 Old myocardial infarction | CPT/HCPCS: 99214 ==

== ENCOUNTER 2024-03-19 08:33 | Outpatient (CLI) | payer MEDICARE, OTHER, SELFPAY ==
--- NOTE | 2024-03-19 08:35 | USCV_ITS ---
Kamilla Katz Age: 78 Gender: F : 1945 Exam Date: 03/19/2024 08:48 Ordering Phys: Judit Stockton MD Technologist: [place] [facility] [place]: sob BP: 128 / 60 HR: 87 Rhythm: Sinus Technical Quality: Adequate MEASUREMENTS (Male / Female) Normal Values 2D ECHO LVOT Diameter 2.1 cm LV Ejection Fraction MOD 4C 71.1 % LV Ejection Fraction MOD 2C 59.7 % LV Ejection Fraction 2C AL 64.6 % LA Diameter 3.8 cm RA Systolic Volume 4C AL 26.0 ml RA Systolic Volume 4C MOD 25.3 ml LA Sys Volume AL 43.6 cm cubed LA Sys Volume Index AL 23.4 cm cubed/m squared Aorta at Sinotubular Diameter 1.7 cm M-MODE LA Ao Ratio MM 1.5 AV Cusp Separation MM 1.8 cm DOPPLER AV Peak Velocity 151.0 cm/s LVOT Peak Velocity 113.0 cm/s AV Area Cont Eq vti 2.9 cm squared AV Area Cont Eq pk 2.5 cm squared MV Peak Velocity 122.0 cm/s MV Area PHT 3.9 cm squared TV Peak Velocity 305.0 cm/s TR Peak Velocity 323.0 cm/s TR Peak Gradient 41.7 mmHg TV Peak E Velocity 75.0 cm/s Right Atrial Pressure 3.0 mmHg Pulmonary Artery Systolic Pressu 44.7 mmHg PV Peak Velocity 107.5 cm/s FINDINGS Left Ventricle Normal left ventricular size and systolic function, EF 60% .Grade I/IV diastolic dysfunction (abnormal relaxation filling pattern), normal to mildly elevated filling pressures. Right Ventricle The right ventricle is normal in size and function. Right Atrium The right atrium is normal in size. Left Atrium Mildly increased left atrial size. Mitral Valve Mild-moderate mitral valve regurgitation. Aortic Valve Thickened aortic valve. Tricuspid Valve Trace tricuspid valve regurgitation. Pulmonic Valve No gross abnormalities noted Pericardium Normal pericardium without effusion. Aorta Normal ascending aorta dimension. IVC Inferior vena cava not visualized. CONCLUSIONS Normal left ventricular size and systolic function, EF 60% .Grade I/IV diastolic dysfunction (abnormal relaxation filling pattern), normal to mildly elevated filling pressures. Mildly increased left atrial size. Mild-moderate mitral valve regurgitation. Thickened aortic valve. Trace tricuspid valve regurgitation. Estimated pulmonary artery peak systolic pressure 45 mmHg(mild pulmonary hypertension) There is no pericardial effusion. There are no intracardiac masses. Compared to the study from 11/14/2022, there may not be a significant change Dr Henry Orosco MD FACC (Electronically Signed) Final Date: 22 March 2024 16:30 S
== END 2024-03-19 08:34 | disposition home or self-care (01) ==
LOC: RAD 08:34
PROVIDERS: PCP Internal Medicine; Visit Provider Internal Medicine
DX: I50.20 Unspecified systolic (congestive) heart failure (principal); I34.0 Nonrheumatic mitral (valve) insufficiency; I35.2 Nonrheumatic aortic (valve) stenosis with insufficiency; R06.02 Shortness of breath
CPT/HCPCS: 93306

== ENCOUNTER → 2024-04-09 14:59 | Outpatient (BNVA) | payer MEDICARE, OTHER, SELFPAY | PROVIDERS: PCP Internal Medicine; Visit Provider Nurse Practitioner Family | DX: L57.0 Actinic keratosis (principal); L82.0 Inflamed seborrheic keratosis; L81.4 Other melanin hyperpigmentation; D22.39 Melanocytic nevi of other parts of face | CPT/HCPCS: 17000; 17110; 99213 ==

== ENCOUNTER 2024-07-29 08:47 | Outpatient (CLI) | payer MEDICARE, OTHER, SELFPAY ==
--- NOTE | 2024-07-29 08:55 | MM_ITS ---
WS: [id number] BILATERAL 3D TOMOSYNTHESIS DIGITAL SCREENING MAMMOGRAPHY WITH CAD CLINICAL INFORMATION: SCREENING HISTORY: Screening mammogram. No current complaints. COMPARISON: 2023 TECHNIQUE: Bilateral CC and MLO views. FINDINGS: The breasts are composed of heterogeneous fibroglandular density tissue, which can limit the detection of small underlying mass lesions. No suspicious mass, asymmetry, calcifications, or architectural distortion. No evidence of malignancy. Incidental punctate and secretory calcifications. Vascular calc ifications. MM/MM [facility] tomosynthesis [id number] IMPRESSION: DENSITY: The breasts are heterogeneously dense, which may obscure small masses. BI-RADS: 2 - Benign FOLLOW UP: 1 Year Follow-up Recommend return to annual screening mammography.
== END 2024-07-29 08:48 | disposition home or self-care (01) ==
PROVIDERS: PCP Internal Medicine; Visit Provider Internal Medicine
DX: Z12.31 Encounter for screening mammogram for malignant neoplasm of breast (principal); R92.333 Mammographic heterogeneous density, bilateral breasts; R92.1 Mammographic calcification found on diagnostic imaging of breast
CPT/HCPCS: 77063; 77067

== ENCOUNTER → 2024-09-19 09:31 | Outpatient (BNVA) | payer MEDICARE, OTHER, SELFPAY | PROVIDERS: PCP Internal Medicine; Visit Provider Internal Medicine Cardiovascular Disease | DX: I25.10 Atherosclerotic heart disease of native coronary artery without angina pectoris (principal); I11.0 Hypertensive heart disease with heart failure; I50.9 Heart failure, unspecified; I27.20 Pulmonary hypertension, unspecified; I34.0 Nonrheumatic mitral (valve) insufficiency; Z79.82 Long term (current) use of aspirin; Z95.5 Presence of coronary angioplasty implant and graft; I25.2 Old myocardial infarction; Z98.890 Other specified postprocedural states; R06.02 Shortness of breath | CPT/HCPCS: 99214 ==

== ENCOUNTER 2024-09-30 07:55 | Outpatient (CLI) | payer MEDICARE, OTHER, SELFPAY ==
--- NOTE | 2024-09-30 08:00 | USCV_ITS ---
Kamilla Katz Age: 79 Gender: F : 1945 Exam Date: 09/30/2024 08:03 Ordering Phys: Corinne Weldon MD ([email or web address]) Technologist: FLACO Exam Location: [facility] [place] Indication: SoB, MV repair BP: 118 / 64 HR: 70 Rhythm: Sinus Technical Quality: Adequate MEASUREMENTS (Male / Female) Normal Values 2D ECHO LV Diastolic Diameter PLAX 4.8 cm 4.2 - 5.9 / 3.9 - 5.3 cm IVS Diastolic Thickness 0.7 cm 0.6 - 1.0 / 0.6 - 0.9 cm IVS Systolic Thickness 1.8 cm LVPW Diastolic Thickness 0.9 cm 0.6 - 1.0 / 0.6 - 0.9 cm LVPW Systolic Thickness 1.5 cm LVOT Diameter 1.9 cm LV Ejection Fraction 2D Teich 64.2 % LV Ejection Fraction MOD 4C 63.4 % LV Ejection Fraction MOD 2C 55.9 % LV Ejection Fraction 2C AL 60.5 % LA Diameter 4.0 cm RA Systolic Volume 4C AL 16.7 ml RA Systolic Volume 4C MOD 16.5 ml LA Sys Volume AL 46.2 cm cubed LA Sys Volume Index AL 24.3 cm cubed/m squared Aorta at Sinotubular Diameter 2.0 cm M-MODE LA Ao Ratio MM 1.7 AV Cusp Separation MM 1.3 cm DOPPLER AV Peak Velocity 129.0 cm/s LVOT Peak Velocity 80.0 cm/s AV Area Cont Eq vti 2.2 cm squared AV Area Cont Eq pk 1.8 cm squared MV Peak Velocity 111.0 cm/s MV Area PHT 3.6 cm squared Mitral E to A Ratio 0.7 TR Peak Velocity 95.0 cm/s TR Peak Gradient 3.6 mmHg TV Peak E Velocity 80.0 cm/s PV Peak Velocity 91.0 cm/s FINDINGS Left Ventricle Normal left ventricular size, systolic function and wall thickness, with no regional wall motion abnormalities. Left ventricular ejection fraction is estimated at 60 %. Grade I/IV diastolic dysfunction (abnormal relaxation filling pattern), normal to mildly elevated filling pressures. Right Ventricle The right ventricle is normal in size and function. Right Atrium The right atrium is normal in size. Left Atrium Moderately increased left atrial size. . Mitral Valve Structurally normal mitral valve without significant stenosis or prolapse. There is no mitral regurgitation. Aortic Valve Mild aortic valve calcification. Trace aortic valve regurgitation. Tricuspid Valve Structurally normal tricuspid valve without significant stenosis or regurgitation. Pulmonary artery systolic pressure is normal. Pulmonic Valve Structurally normal pulmonic valve without significant stenosis. There is no pulmonic regurgitation. Pericardium Normal pericardium without effusion. Aorta Normal ascending aorta dimension. IVC The inferior vena cava appears normal. CONCLUSIONS Normal left ventricular size, systolic function and wall thickness, with no regional wall motion abnormalities. Left ventricular ejection fraction is estimated at 60 %. Grade I/IV diastolic dysfunction (abnormal relaxation filling pattern), normal to mildly elevated filling pressures Structurally normal mitral valve without significant stenosis or prolapse. There is no mitral regurgitation. There is no pericardial effusion. Right atrial pressure is around 5 mm of mercury. Corinne Weldon MD (Electronically Signed) Final Date: 12 Oct 2024 22:20 S
== END 2024-09-30 07:56 | disposition home or self-care (01) ==
PROVIDERS: PCP Internal Medicine; Visit Provider Internal Medicine Cardiovascular Disease
DX: Z98.890 Other specified postprocedural states (principal); R06.02 Shortness of breath; R93.1 Abnormal findings on diagnostic imaging of heart and coronary circulation; I51.7 Cardiomegaly; I35.8 Other nonrheumatic aortic valve disorders
CPT/HCPCS: 93306

== ENCOUNTER → 2025-02-02 10:04 | Outpatient (BNVA) | payer MEDICARE, OTHER, SELFPAY | PROVIDERS: PCP Internal Medicine; Visit Provider Nurse Practitioner Family | DX: L30.9 Dermatitis, unspecified (principal); L81.4 Other melanin hyperpigmentation; D22.39 Melanocytic nevi of other parts of face; D23.61 Other benign neoplasm of skin of right upper limb, including shoulder | CPT/HCPCS: 99213 ==

== ENCOUNTER → 2025-03-06 13:43 | Outpatient (BNVA) | payer MEDICARE, OTHER, SELFPAY | PROVIDERS: PCP Internal Medicine; Visit Provider Nurse Practitioner Family | DX: L30.9 Dermatitis, unspecified (principal); L29.89 Other pruritus; L98.8 Other specified disorders of the skin and subcutaneous tissue | CPT/HCPCS: 11104; 99214 ==

== ENCOUNTER → 2025-03-19 14:39 | Outpatient (BNVA) | payer MEDICARE, OTHER, SELFPAY | PROVIDERS: PCP Internal Medicine; Visit Provider Internal Medicine Cardiovascular Disease | DX: I25.10 Atherosclerotic heart disease of native coronary artery without angina pectoris (principal); R06.09 Other forms of dyspnea; R07.89 Other chest pain; I10 Essential (primary) hypertension; I25.2 Old myocardial infarction; Z95.5 Presence of coronary angioplasty implant and graft | CPT/HCPCS: 99214 ==

== ENCOUNTER → 2025-03-20 09:40 | Outpatient (BNVA) | payer MEDICARE, OTHER, SELFPAY | PROVIDERS: PCP Internal Medicine; Visit Provider Nurse Practitioner Family | DX: L27.0 Generalized skin eruption due to drugs and medicaments taken internally (principal); L72.0 Epidermal cyst; L82.0 Inflamed seborrheic keratosis; L29.89 Other pruritus; B07.8 Other viral warts | CPT/HCPCS: 17110; 99214 ==

== ENCOUNTER → 2025-05-11 15:22 | Outpatient (BNVA) | payer MEDICARE, OTHER, SELFPAY | PROVIDERS: PCP Internal Medicine; Visit Provider Nurse Practitioner Family | DX: L27.0 Generalized skin eruption due to drugs and medicaments taken internally (principal); D22.5 Melanocytic nevi of trunk; L82.1 Other seborrheic keratosis | CPT/HCPCS: 99213 ==